=== PATIENT | male | born 1995 | race Caucasian/White ===

== ENCOUNTER → 2017-05-11 | Outpatient (CLI) | payer OTHER ==
--- NOTE | 2017-05-11 16:55 | DI ---
LEFT ANKLE, 05/11/2017 4:14 PM: Clinical History: Left ankle injury. Previous Exam: None at this facility. 3 views are submitted. There is no fracture or dislocation. Mild soft tissue swelling is present over the lateral malleolus. Reading: No fracture noted.
== END ==
LOC: MOB RAD 16:16
PROVIDERS: ATTEND Physician Assistant Medical
DX: S99.912A Unspecified injury of left ankle, initial encounter (principal); S93.432A Sprain of tibiofibular ligament of left ankle, initial encounter; X50.1XXA Overexertion from prolonged static or awkward postures, initial encounter; Y92.410 Unspecified street and highway as the place of occurrence of the external cause
CPT/HCPCS: 73610